=== PATIENT | female | born 1955 | race Caucasian/White ===

== ENCOUNTER 2020-10-10 00:26 | Inpatient (IN) | payer BC, OTHER ==
[~2020-10-10] VITALS: Ht 170.2 cm; Wt 135.0 kg
[2020-10-10 01:15] LABS: RED BLOOD COUNT 4.17 M/UL (4.00-5.10); WHITE BLOOD COUNT 9.5 K/UL (4.5-11.0)
[2020-10-10 01:54] LABS: BUN/CREATININE RATIO 23 (0-10)
[2020-10-10] MEDS ORDERED: ELIQUIS5 MG PO (09:13)
[2020-10-10] MEDS ORDERED: BYSTOLIC5 MG PO (09:13)
[2020-10-10] MEDS ORDERED: CYCLOBENZAPRINE5 MG PO (09:14)
[2020-10-10] MEDS ORDERED: QUINAPRIL-HCTZ1 EAC2 PO (09:14)
[2020-10-10] MEDS ORDERED: LEVOTHYROXINE50 MCG PO (09:15)
[2020-10-10] MEDS ORDERED: VITAMIN D350 MC3 PO (09:17)
[2020-10-10] MEDS ORDERED: VITAMIN B-121000 MC3 PO (09:18)
[2020-10-10] MEDS ORDERED: BIOTIN2500 MCG PO (09:20)
[2020-10-10] MEDS ORDERED: MULTI-VITAMIN1 EACH PO (09:20)
[2020-10-10] MEDS ORDERED: ASPIRIN EC81 MG PO (10:18)
[2020-10-11 05:03] LABS: HEMOGLOBIN 11.7 gm/dl (12.3-15.3); RED BLOOD COUNT 3.76 M/UL (4.00-5.10); WHITE BLOOD COUNT 7.3 K/UL (4.5-11.0)
[2020-10-11 05:29] LABS: BUN/CREATININE RATIO 20 (0-10)
[2020-10-12 03:37] LABS: HEMOGLOBIN 13.1 gm/dl (12.3-15.3); WHITE BLOOD COUNT 8.7 K/UL (4.5-11.0)
[2020-10-12 03:42] LABS: RED BLOOD COUNT 4.18 M/UL (4.00-5.10)
[2020-10-12 03:55] LABS: BUN/CREATININE RATIO 22 (0-10)
== END 2020-10-13 12:31 | disposition short-term general hospital (02) | DRG 287 ==
LOC: ER1 00:26 → CDU 04:26 → M/S 09:00 → PROG CARE 10-11 17:52
PROVIDERS: Student in an Organized Health Care Education/Training Program; ADMIT Internal Medicine
PROC: B24BZZ4 Ultrasonography of Heart with Aorta, Transesophageal (ICD-10-PCS; principal; 2020-10-10)
PROC: 4A023N7 Measurement of Cardiac Sampling and Pressure, Left Heart, Percutaneous Approach (ICD-10-PCS; 2020-10-11)
PROC: B2151ZZ Fluoroscopy of Left Heart using Low Osmolar Contrast (ICD-10-PCS; 2020-10-11)
PROC: B2111ZZ Fluoroscopy of Multiple Coronary Arteries using Low Osmolar Contrast (ICD-10-PCS; 2020-10-11)
DX: I25.119 Atherosclerotic heart disease of native coronary artery with unspecified angina pectoris (principal); Z68.41 Body mass index [BMI] 40.0-44.9, adult; E03.9 Hypothyroidism, unspecified; I11.9 Hypertensive heart disease without heart failure; Z20.822 Contact with and (suspected) exposure to COVID-19; E66.01 Morbid (severe) obesity due to excess calories; E78.00 Pure hypercholesterolemia, unspecified; E87.6 Hypokalemia; Z79.01 Long term (current) use of anticoagulants; Z86.16 Personal history of COVID-19; Z90.49 Acquired absence of other specified parts of digestive tract; Z82.49 Family history of ischemic heart disease and other diseases of the circulatory system; Z88.0 Allergy status to penicillin; Z88.2 Allergy status to sulfonamides; Z86.711 Personal history of pulmonary embolism; Z98.51 Tubal ligation status
CPT/HCPCS: ECHO; 36415; 71045; 80048; 80053; 82550; 82553; 83036; 83690; 83735; 83874; 84100; 84439; 84443; 84484; 84550; 85025; 85027; 85379; 85730; 93005; 93306; 99152; 99153; 99285; C1769; J1644; J2250; J3010; J7030; J7040; Q9967; U0002

== ENCOUNTER 2020-11-01 14:39 | Emergency (ER) | payer BC, OTHER ==
[~2020-11-01 14:39] MED LIST: ASPIRIN EC81 MG PO; BIOTIN2500 MCG PO; BYSTOLIC5 MG PO; CYCLOBENZAPRINE5 MG PO; ELIQUIS5 MG PO; LEVOTHYROXINE50 MCG PO; MULTI-VITAMIN1 EACH PO; QUINAPRIL-HCTZ1 EAC2 PO; VITAMIN B-121000 MC3 PO; VITAMIN D350 MC3 PO
[2020-11-01 15:51] LABS: HEMOGLOBIN 9.6 gm/dl (12.3-15.3); RED BLOOD COUNT 3.19 M/UL (4.00-5.10)
[2020-11-01 16:11] LABS: BUN/CREATININE RATIO 39 (0-10)
[2020-11-01 16:12] LABS: WHITE BLOOD COUNT 8.8 K/UL (4.5-11.0)
== END 2020-11-01 15:40 | disposition expired ==
LOC: ER1 14:39
PROVIDERS: Emergency Medicine
DX: I46.9 Cardiac arrest, cause unspecified (principal); I25.10 Atherosclerotic heart disease of native coronary artery without angina pectoris
CPT/HCPCS: 31500; 36556; 71045; 80053; 84484; 85025; 85610; 85730; 92950; 99291; 99292; C1751; J0171; J7070